=== PATIENT | male | born 1990 | race Caucasian/White ===

== ENCOUNTER 2016-07-12 13:25 | Emergency (ER) | payer OTHER ==
[~2016-07-12] VITALS: Ht 172.7 cm; Wt 97.0 kg
[~2016-07-12 13:25] MED LIST: ACET325T33 PO; AMOX1TAB10 PO; CEPH500C PO; IBUP-1542 PO; IBUP400T22 PO; ONDA4TAB14 PO
[2016-07-12 13:28] VITALS: Ht 172.7 cm; Wt 97.0 kg
[2016-07-12] MEDS ORDERED: DIPHTH/TET/ACEL PERTUSS (ADULT) 0.5 ML VIAL IM ONE (15:00)
[2016-07-12] MEDS ORDERED: LIDOCAINE 1% (MDV) 20 ML INJ SC ONE (15:00)
[2016-07-12] MEDS ORDERED: ACETAMINOPHEN/CODEINE #3 TAB PO ONE (15:00)
[2016-07-12] MEDS ORDERED: IBUP-1542 PO (15:19)
--- NOTE | 2016-07-12 15:22 | ERD ---
ER Documentation Chief Complaint Date/Time DATE: 07/12/16 TIME: 15:21 Chief Complaint lt middle finger lac sustained with knife while washing dishes at 0200 HPI This 26-year-old male sustained a laceration on the tip of his left middle finger late last night while doing the dishes. There is a knife in the sink water. Denies restricted range of motion weakness or redness or fevers. His tetanus is not up-to-date. ROS All systems reviewed and are negative except as per history of present illness. Medications Home Meds Active Scripts Ibuprofen* (Motrin*) 600 Mg Tab, 600 MG PO Q6, #15 TAB Prov:RICARDO TRONCOSO MD 07/12/16 Acetaminophen* (Tylenol*) 325 Mg Tablet, 2 TAB PO Q6 Y for PAIN AND OR ELEVATED TEMP, #20 TAB Prov:BLANCA ZELAYA DO 12/06/15 Ondansetron (Ondansetron Odt) 4 Mg Tab.rapdis, 4 MG PO Q6H Y for NAUSEA AND/OR VOMITING, #6 TAB Prov:BLANCA ZELAYA DO 12/06/15 Amox Tr/Potassium Clavulanate (Amox Tr-K Clv 875-125 Mg Tab) 1 Tab Tablet, 1 TAB PO BID for 7 Days, #20 TAB Prov:RICARDO TRONCOSO MD 08/24/15 Ibuprofen* (Motrin*) 600 Mg Tab, 600 MG PO Q6, #14 TAB Prov:RICARDO TRONCOSO MD 08/24/15 Ibuprofen* (Motrin*) 400 Mg Tab, 400 MG PO Q6, #30 TAB 0 Refills Prov:JOSEPHINE GUERRERO PA-C 06/11/15 Cephalexin* (Cephalexin*) 500 Mg Capsule, 500 MG PO TID, #21 CAP 0 Refills Prov:JOSEPHINE GUERRERO PA-C 06/11/15 Allergies Allergies: Coded Allergies: No Known Allergy (Unverified , 12/06/15) PMhx/Soc History of Surgery: No Anesthesia Reaction: No Hx Neurological Disorder: No Hx Respiratory Disorders: No Hx Cardiac Disorders: No Hx Psychiatric Problems: No Hx Miscellaneous Medical Probl: No Hx Alcohol Use: No Hx Substance Use: Yes (marijuana ) Hx Tobacco Use: Yes Physical Exam Vitals Vital Signs Date Time Temp Pulse Resp B/P Pulse Ox O2 Delivery O2 Flow Rate FiO2 07/12/16 13:28 98.2 86 18 128/98 99 Physical Exam Const: [] Alert, [id number] per Head: Atraumatic Eyes: Normal Conjunctiva ENT: Normal External Ears, Nose and Mouth. Neck: Full range of motion..~ No meningismus. Resp: Clear to auscultation bilaterally Cardio: Regular rate and rhythm, no murmurs Abd: Soft, non tender, non distended. Normal bowel sounds Skin: No petechiae or rashes Back: No midline or flank tenderness Ext: No cyanosis, or edema. The tip of the left middle finger shows approximately 1.2 cm laceration involving the nail. There is no restricted range of motion weakness and the laceration is approximately 3 mm deep. There is no erythema or redness Neur: Awake and alert Psych: Normal Mood and Affect Results 24 hrs Current Medications Medications (Trade) Dose Ordered Sig/Sherice Route PRN Reason Start Time Stop Time Status Last Admin Dose Admin Acetaminophen/ Codeine Phosphate (Tylenol No.3) 1 tab ONCE ONCE PO 07/12/16 15:00 07/12/16 15:01 DC Diphtheria/ Tetanus/Acell Pertussis (Adacel) 0.5 ml ONCE ONCE IM 07/12/16 15:00 07/12/16 15:01 DC Lidocaine (Xylocaine 1% (Mdv) 20 ml) 20 ml ONCE ONCE SC 07/12/16 15:00 07/12/16 15:01 DC Procedures/MDM Patient was given a tetanus booster. Patient was given Tylenol 3 by mouth. Procedure note-left middle finger was irrigated copiously with normal saline. 2 cc of lidocaine was used to perform a digital block. Anesthesia was obtained. 3 5-0 nylon sutures were used to approximate the wound. A portion of the lacerated nail was removed. Wound was dressed and patient tolerated the procedure well. Patient presents with a laceration to the tip of the left middle finger without evidence of tendon or neurologic deficit, ischemia, signs of bacterial infection. Discharged home with patient for a wound check in 2 days and suture removal in 7-10 days. Should return sooner for fevers, redness, new or worsening symptoms or Departure Diagnosis: Primary Impression: Laceration Condition: Stable Patient Instructions: Laceration, Hand Additional Instructions: 2 days wound check. 7-10 days suture removal. Recheck sooner for fevers, redness, new symptoms. RICARDO TRONCOSO MD Jul 12, 2016 15:22
== END 2016-07-12 16:32 | disposition home or self-care (01) ==
LOC: FTE 13:25
DX: S61.213A Laceration without foreign body of left middle finger without damage to nail, initial encounter (principal); W26.0XXA Contact with knife, initial encounter; Y92.9 Unspecified place or not applicable; Z87.891 Personal history of nicotine dependence; Z23 Encounter for immunization
CPT/HCPCS: 12001; 82962; 90471; 90715; Z7502; Z7610

== ENCOUNTER 2016-09-30 19:49 | Emergency (ER) | payer OTHER ==
[~2016-09-30] VITALS: Ht 177.8 cm; Wt 100.5 kg
[2016-09-30 19:54] VITALS: Ht 177.8 cm; Wt 100.5 kg
[2016-09-30] MEDS ORDERED: ACETAMINOPHEN 325 MG TAB PO ONE (22:00)
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
[2016-09-30] MEDS ORDERED: ACET500C5 PO (23:51)
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
== END 2016-10-01 | disposition home or self-care (01) ==
LOC: FTE 19:49
DX: S29.001A Unspecified injury of muscle and tendon of front wall of thorax, initial encounter (principal); S39.92XA Unspecified injury of lower back, initial encounter; S89.91XA Unspecified injury of right lower leg, initial encounter; F17.210 Nicotine dependence, cigarettes, uncomplicated; R07.89 Other chest pain; V89.2XXA Person injured in unspecified motor-vehicle accident, traffic, initial encounter
CPT/HCPCS: 71010; 71110; Z7502; Z7610